=== PATIENT | male | born 1955 | race Caucasian/White ===

== ENCOUNTER 2017-07-04 20:05 | Emergency (ER) | payer OTHER ==
[~2017-07-04] VITALS: Ht 167.6 cm; Wt 108.9 kg
[~2017-07-04 20:05] MED LIST: FLEXERIL10 MG PO; HYDROCODONE1 TABLET PO; IBU-8800 MG PO; LORTAB 5/500 501 TAB PO; NEXIUM40 MG PO
[2017-07-04 20:29] LABS: HEMOGLOBIN 17.7 g/dL (14.1-18.0); LYMPH # 2.1 K/mm3 (0.7-4.5); LYMPH % 28.1 % (10-50)
--- NOTE | 2017-07-04 20:32 | Emergency Room Report ---
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 N Clinical Suspician of Infection? N Mental Status: 1 - Regular (Normal Baseline) Sepsis Risk:Low Sepsis Risk Have you (or family members/close friends) recently traveled outside the [place]? N If Yes, where/when: Have you had exposure to infectious disease within the past month? N TB? Other? Specify: Source patient, RN notes reviewed, old records Exam Limitations no limitations Comment acute rt flank pain w/o hematuria with hx of kidney stones - started this pm Cardiac Chest Pain Chest pain indicative of cardiac No Timing/Duration this evening Severity moderate ALLERGIES Coded Allergies: No Known Allergies (07/04/17) History Medical History General CAD? No Angina: No [place]: No Hypertension? No Hyperlipidemia? No CHF? No DVT? No PE? No COPD? No Asthma? No Anemia? No GERD? Yes Gastric ulcers? No GI Bleed? No Hernia? Yes Thyroid Problems? No Hypothyroidism? No CVA? No Seizures? No Diabetes? No Renal Insuffiency? No End Stage Renal Disease? No UTI? No Stones? Yes BPH? No GB Disease: No Nephritic Syndrome? No Asplenia? No Hepatitis? No Sickle Cell Disease? No Arthritis? No Migraines? No Cataracts? No Glaucoma? No MRSA? No HIV? No TB? No Anxiety? No Depression? No Cancer? No Immunization Hx DT/Tetanus NOT SURE Surgical Hx Previous Surgery?Y L. UMBILICAL HERNIA Social History Smoking Hx Smoker: Current Every Day Smoker Tobacco: Yes Type Cigarettes Packs/day < 1 Pack Alcohol Alcohol: No Drugs none Review of Systems All Other Systems Reviewed and Negative Constitutional denies fever Eyes denies drainage ENT denies: ear discharge, epistaxis, throat pain. Respiratory denies cough, denies shortness of breath, denies wheezing Cardiovascular denies chest pain, denies syncope Gastrointestinal denies abdominal pain, denies diarrhea, denies vomiting Genitourinary see HPI. denies: dysuria, frequency, hesitancy, scrotal/testicular pain. Musculoskeletal denies joint pain, denies joint swelling, denies neck pain Skin denies rash Psychiatric/Neurological denies headache, denies seizure Physical Exam Vital Signs Vital Signs Date Time Temp Pulse Resp B/P Pulse O2 O2 Flow FiO2 Ox Delivery Rate 07/04 98.3 64 24 155/91 98 - WBC >12,000 or <4,000 or 10% bands? 2 or more SIRS Criteria Met? B/P:155/91 MAP:112 Creatinine >2.0? UA output<0.5ml/kg/hr for 2 hrs? Platelet count >100,000? Lactate >2.0mmol/1? INR >1.2 or PTT > than 60 sec? Evidence of Organ Dysfunction? Provider documented clinical suspician of infection? N Sepsis Criteria Count: 1 Sepsis Risk: Low Sepsis Risk General Appearance no apparent distress Eye Exam - bilateral eye PERRL, bilateral eye EOMI Ear, Nose, Throat normal ENT inspection Neck supple Respiratory Status No: respiratory distress. 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 No Results/Orders Laboratory Tests 07/04/172014: Sodium 139, Potassium 4.0, Chloride 105, Carbon Dioxide 26, BUN 12, Creatinine 1.1, Estimated Creat Clear 111, Estimated GFR (MDRD) 69, Glucose 96, Calcium 8.9 , Total Bilirubin 0.4, AST 19, ALT 30, Alkaline Phosphatase 75, Total Protein 7.2, Albumin 4.1, Globulin 3.1, Albumin/Globulin Ratio 1.3, WBC 7.3, RBC 5.60, Hgb 17.7, Hct 51.9, MCV 92.7, RDW 13.4, Plt Count 128 L, MPV 8.7, Gran % 62.4, Gran # 4.6, Lymphocytes % 28.1, Monocytes % 5.6, Eosinophils % 3.4, Basophils % 0.6, Lymphocytes # 2.1, Monocytes # 0.4, Eosinophils # 0.2, Basophils # 0.0, PUBS MCHC 34.1, MCH 31.6 H, Urine Color YELLOW, Urine Appearance CLEAR, Urine pH 5.5, Ur Specific [place] 1.025, Urine Protein NEGATIVE, Urine Ketones NEGATIVE, Urine Blood 3+ H, Urine Nitrate NEGATIVE, Urine Bilirubin NEGATIVE, Urine Urobilinogen 0.2, Ur Leukocyte Esterase NEGATIVE, Urine RBC 50-100, Urine WBC NONE, Ur Squamous Epith Cells OCC, Calcium Oxalate Crystal 1+, Urine Bacteria 1+, Urine Glucose NEGATIVE Current Medication Orders Sig/Valeria Start time Last Medication Dose Route Stop Time Status Admin Acetaminophen/ 1 GUTIERREZ ONCE ONE 07/04 2145 AC Codeine Phosphate PO 07/04 2146 Tamsulosin HCl 0.4 MG ONCE ONE 07/04 2145 AC PO 07/04 2146 Ketorolac 30 MG ONCE ONE 07/04 2030 DC 07/04 Tromethamine IV 07/04 Sodium Chloride 1,000 ML .Q1H1M 07/04 2030 DC 07/04 IV 07/04 Sodium Chloride 10 ML PRN PRN 07/04 2030 AC IV 07/05 2016 Sodium Chloride 10 ML PRN PRN 07/04 2030 AC IV 07/05 2021 Sodium Chloride 1,000 ML .STK-MED ONE 07/04 2019 DC IV Ketorolac 0 .STK-MED ONE 07/04 2018 DC Tromethamine .ROUTE Orders Procedure Date/time Status DIET-NOTHING BY MOUTH 07/05 B Active IV SALINE LOCK 07/[address] ABD & PELVIS W/O CONTRAST 07/[address] ABD/PELVIS REQ 07/04 2016 Complete URINALYSIS/COMPLETE 07/04 2016 Complete CBC WITH AUTO DIFF 07/04 2016 Complete CHEM 12 PROFILE 07/04 2016 Complete XRAY/CT/US XRAY/CT/US CT abdomen, pelvis CT interpretation by discussed w/radiologist Time results known: 2134 CT Results abnormal (see report) Departure Departure Time of Disposition 2134 Disposition DC Home or Self Care(routine) Clinical Impression Primary Impression: Renal colic on right side Condition STABLE Referrals Quentin COULTER,Jean Amaral MD,[place] Patient Instructions DI for Kidney Stones Additional Instructions fluids and see pcp and urology for follow up Discharge Counseling Counseled pt/family regarding diagnosis, test results, medications/RX, follow up needs Prescriptions Current Visit Scripts HYDROCODONE/ACETAMINOPHEN ([place] 5-325 Tablet) 1 TAB PO Q6HP PRN pain #10 TAB TAMSULOSIN HCL (Flomax 0.4MG) 0.4 MG PO QHS #14 CAP ED Critical Care Critical Care No at [id number]
[2017-07-04 20:36] LABS: URINE BILIRUBIN - DIPSTICK NEGATIVE (NEG); URINE BLOOD 3+ (NEG)
[2017-07-04 20:49] LABS: URINE SQUAMOUS CELLS OCC #/hpf (OCC)
[2017-07-04] MEDS ORDERED: NORCO 325 MG-51 TAB PO (21:40)
[2017-07-04] MEDS ORDERED: FLOMAX 0.4MG C0.4 MG PO (21:40)
[2017-07-04 21:50] VITALS: BP 134/83
--- NOTE | 2017-07-05 06:33 | RADIOLOGY REPORT PS360 ---
CT ABD PELVIS W/O CONTRAST CLINICAL INDICATION: Right flank pain RIGHT FLANK PAIN ORDERING PHYSICIAN: Jud Martinez MD PATIENT AGE: 61 years COMPARISON: None TECHNIQUE: Axial images obtained with sagittal and coronal reformats. PROCEDURE: Oral Contrast: None IV Contrast: None . FINDINGS: Lower thorax: There are mild atelectatic or fibrotic changes in the right lung base. The liver, gallbladder, adrenal glands, spleen, and pancreas are unremarkable. There are several small right renal calculi measuring up to 4 mm in the mid to lower pole. There is mild right hydronephrosis and proximal hydroureter secondary to a 3 mm stone in the mid right ureter at the L4-L5 level. No left renal calculi or ureteral calculi evident. Scattered small lymph nodes are present in the retroperitoneum. Unremarkable appendix. No evidence of intestinal obstruction, free air, or diverticulitis. No acute bony anomalies. Degenerative changes are present in the hips and lumbar spine. IMPRESSION: 1. 3 mm right mid ureteral stone with mild obstructive uropathy. 2. Right nephrolithiasis
== END 2017-07-04 21:51 | disposition home or self-care (01) ==
LOC: ER 20:05
PROVIDERS: Emergency Medicine
DX: N20.0 Calculus of kidney (principal); Z87.442 Personal history of urinary calculi

== ENCOUNTER 2017-07-05 23:56 | Emergency (ER) | payer OTHER ==
[~2017-07-05] VITALS: Ht 167.6 cm; Wt 81.6 kg
[~2017-07-05 23:56] MED LIST changes: +FLOMAX 0.4MG C0.4 MG PO; +NORCO 325 MG-51 TAB PO
[2017-07-06 00:34] LABS: URINE BILIRUBIN - DIPSTICK NEGATIVE (NEG); URINE BLOOD 3+ (NEG)
--- NOTE | 2017-07-06 00:51 | Emergency Room Report ---
History of Present Illness Time Seen by [id number] Presenting Problem in Triage Pt arrived:Walked Presenting Problem:PT REPORTS ABDOMINAL PAIN IN RLQ RADIATING TO RT SIDE OF BACK. PT ALSO C/O N/V. PT WAS SEEN HERE LAST NIGHT FOR THIS AND DX WITH KIDNEY STONES. Onset of symptoms date/time:/ or onset unknown for:MEDICAL HX UNKNOWN Treatment Prior to Arrival: TYLENOL 3 AND FLOMAX ABOUT AN HOUR AGO GIVEN PER THIS ER LAST NIGHT. [employer] Provided by:SELF Sepsis Risk Assessment: Temp: 98.1 B/P: 164/99 MAP: 120 Pulse: 69 Resp: 20 Recent fever? N Clinical Suspician of Infection? N Mental Status: 1 - Regular (Normal Baseline) Sepsis Risk:Low Sepsis Risk Have you (or family members/close friends) recently traveled outside the [place]? N If Yes, where/when: Have you had exposure to infectious disease within the past month? N TB? Other? Specify: Source patient, RN notes reviewed, family, old records Exam Limitations no limitations Comment pt with acute rt flank pain /renal colic which did not respond to his op meds with no fever but has vomiting Cardiac Chest Pain Chest pain indicative of cardiac No Timing/Duration this evening Severity moderate ALLERGIES Coded Allergies: No Known Allergies (07/04/17) Home Medications Active Scripts HYDROCODONE/ACETAMINOPHEN ([place] 5-325 Tablet) 1 TAB PO Q6HP PRN pain #10 TAB Prov: 07/04/17 TAMSULOSIN HCL (Flomax 0.4MG) 0.4 MG PO QHS #14 CAP Prov: 07/04/17 History Medical History General CAD? No Angina: No [place]: No Hypertension? No Hyperlipidemia? No CHF? No DVT? No PE? No COPD? No Asthma? No Anemia? No GERD? Yes Gastric ulcers? No GI Bleed? No Hernia? Yes Thyroid Problems? No Hypothyroidism? No CVA? No Seizures? No Diabetes? No Renal Insuffiency? No End Stage Renal Disease? No UTI? No Stones? Yes BPH? No GB Disease: No Nephritic Syndrome? No Asplenia? No Hepatitis? No Sickle Cell Disease? No Arthritis? No Migraines? No Cataracts? No Glaucoma? No MRSA? No HIV? No TB? No Anxiety? No Depression? No Cancer? No Immunization Hx DT/Tetanus NOT SURE Surgical Hx Previous Surgery?Y L. UMBILICAL HERNIA Social History Smoking Hx Smoker: Current Every Day Smoker Tobacco: Yes Type Cigarettes Packs/day < 1 Pack Alcohol Alcohol: No Drugs none Review of Systems All Other Systems Reviewed and Negative Constitutional denies fever Eyes denies drainage ENT denies: ear discharge, epistaxis, throat pain. Respiratory denies cough, denies shortness of breath, denies wheezing Cardiovascular denies chest pain, denies syncope Gastrointestinal see HPI, denies abdominal pain, nausea, vomiting Genitourinary see HPI, pain. denies: dysuria, frequency, hesitancy, hematuria, scrotal/ testicular pain. Musculoskeletal denies back pain, denies joint pain, denies joint swelling, denies neck pain Skin denies rash Psychiatric/Neurological denies headache, denies seizure Physical Exam Vital Signs Vital Signs Date Time Temp Pulse Resp B/P Pulse O2 O2 Flow FiO2 Ox Delivery Rate 07/06 0029 20 07/06 0011 20 07/06 0002 98.1 69 22 164/99 98 - WBC >12,000 or <4,000 or 10% bands? 2 or more SIRS Criteria Met? B/P:164/99 MAP:120 Creatinine >2.0? UA output<0.5ml/kg/hr for 2 hrs? Platelet count >100,000? Lactate >2.0mmol/1? INR >1.2 or PTT > than 60 sec? Evidence of Organ Dysfunction? Provider documented clinical suspician of infection? N Sepsis Criteria Count: 0 Sepsis Risk: Low Sepsis Risk General Appearance no apparent distress Eye Exam - bilateral eye PERRL, bilateral eye EOMI Ear, Nose, Throat normal ENT inspection Neck supple Respiratory Status No: respiratory distress. 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 No Results/Orders Laboratory Tests 07/06/17 0000: Urine Color YELLOW, Urine Appearance SL CLOUDY, Urine pH 5.5, Ur Specific [place] >= 1.030, Urine Protein NEGATIVE, Urine Ketones NEGATIVE, Urine Blood 3+ H, Urine Nitrate NEGATIVE, Urine Bilirubin NEGATIVE, Urine Urobilinogen 0.2, Ur Leukocyte Esterase NEGATIVE, Urine RBC 10-20, Calcium Oxalate Crystal 4+, Urine Glucose NEGATIVE Current Medication Orders Sig/Valeria Start time Last Medication Dose Route Stop Time Status Admin Promethazine HCl 12.5 MG ONCE ONE 07/06 115 AC IV 07/06 0116 Promethazine HCl 1 GUTIERREZ ONCE ONE 07/06 011 AC PO 07/06 0116 Sodium Chloride 25 ML ONCE ONE 07/06 115 AC IV 07/06 0129 Promethazine HCl 0 .STK-MED ONE 07/06 105 DC PO Promethazine HCl 0 .STK-MED ONE 07/06 104 DC RI Promethazine HCl 0 .STK-MED ONE 07/06 103 DC .ROUTE Sodium Chloride 25 ML .STK-MED ONE 07/06 103 DC IV Hydromorphone HCl 0 .STK-MED ONE 07/06 102 DC .ROUTE Hydromorphone HCl 1 MG ONCE ONE 07/06 010 DC IV 07/06 010 Hydromorphone HCl 1 MG ONCE ONE 07/06 0030 DC 07/06 IV 07/06 0031 0029 Hydromorphone HCl 0 .STK-MED ONE 07/06 002 DC .ROUTE Ketorolac 30 MG ONCE ONE 07/06 15 DC 07/06 Tromethamine IV 07/06 0016 0011 Ondansetron HCl 4 MG ONCE ONE 07/06 15 DC 07/06 IV 07/06 0016 0010 Sodium Chloride 1,000 ML .Q1H1M 07/06 0015 AC 07/06 IV 07/06 0115 0011 Sodium Chloride 10 ML PRN PRN 07/06 001 AC IV 07/07 0010 Ondansetron HCl 0 .STK-MED ONE 07/06 000 DC .ROUTE Sodium Chloride 1,000 ML .STK-MED ONE 07/06 000 DC IV Ketorolac 0 .STK-MED ONE 07/06 0008 DC Tromethamine .ROUTE Orders Procedure Date/time Status KUB (SINGLE VIEW) 07/06 0048 Active URINALYSIS/COMPLETE 07/06 001 Complete XRAY/CT/US XRAY/CT/US XRAY KUB XR interpretation by reviewed by me Xray Results abnormal (stone) Departure Departure Time of Disposition 0055 Disposition DC Home or Self Care(routine) Clinical Impression Primary Impression: Kidney stone on right side Condition STABLE Referrals Quentin COULTER,Jean Amaral MD,[place] Patient Instructions DI for Kidney Stones Additional Instructions fluids and see pcp for follow up and urologist for follow up Discharge Counseling Counseled pt/family regarding diagnosis, test results, medications/RX, follow up needs Prescriptions Current Visit Scripts OXYCODONE HCL/ACETAMINOPHEN (Percocet 7.5-325 MG Tablet) 1 TAB PO Q6HP PRN pain #10 TAB PROMETHAZINE HCL (Phenergan 25MG Tab (Geq)) 25 MG PO Q6HP PRN N/V #14 TAB ED Critical Care Critical Care No at 0107
[2017-07-06] MEDS ORDERED: PHENERGAN25 M3 PO (01:07)
[2017-07-06] MEDS ORDERED: PERCOCET 325 MG1 TA4 PO (01:07)
[2017-07-06 01:22] VITALS: BP 126/61
--- NOTE | 2017-07-06 08:59 | RADIOLOGY REPORT PS360 ---
KUB (SINGLE VIEW) Ordering Physician: Jud Martinez MD Patient Age: 61 years: Male HISTORY: ABD PAINright ureteral stone seen on 07/04/2017 CT abdomen/pelvis TECHNIQUE: AP supine abdomen COMPARISON :CT abdomen pelvis 07/04/2017 FINDINGS Nonspecific bowel gas pattern. There is generous gas and moderate/generous stool seen throughout the right and transverse colon with minimal stool and gas left colon. Moderate small bowel gas. The patient is fairly large and with this far lateral right & left flank are not included. (This study was performed primarily to evaluate the previously noted stone at the right ureter seen the recent CT 07/04/2017. It was located right of the the L4/5 disc level on that study.. This calculus is not definitively evident today and could be obscured by the hypertrophic changes along the right aspect of L4/5 and the L5/S1 facet hypertrophy. The small faint calcifications in the pelvis are most likely stable phleboliths and vascular calcifications. IMPRESSION 1. Previous small right ureteral calculus just to the right of L4/5 disc level on recent 07/04/2017 CT abdomen- is NOT definitely evident on this current KUB. However Could be obscured by hypertrophic changes to the right of the spine in this region. 2.. Generous gas and stool throughout the right and transverse colon. Generous gas at small bowel.
== END 2017-07-06 01:23 | disposition home or self-care (01) ==
LOC: ER 23:56
PROVIDERS: Emergency Medicine
DX: N20.0 Calculus of kidney (principal)
CPT/HCPCS: J2405